=== PATIENT | female | born 1980 | race Caucasian/White ===

== ENCOUNTER 2018-07-14 19:54 | Emergency (ER) | payer BC ==
[2018-07-14] MEDS ORDERED: NORMAL SALINE 1000 ML 1,000 ML IV ONE (20:38)
[2018-07-14] MEDS ORDERED: ONDANSETRON HCL INJ/PF 4 MG/2 ML SDV IV ONE (20:38)
[2018-07-14] MEDS ORDERED: FENTANYL CITRATE INJ/PF 100 MCG/2 ML AMPUL IV ONE (20:38)
--- NOTE | 2018-07-14 20:40 | ER Document Report ---
ED Medical Screen (RME) - General Chief Complaint: Abdominal Pain Stated Complaint: ABDOMINAL PAIN Time Seen by Provider: 07/14/18 20:38 Primary Care Provider: VIN LEZAMA NP [Primary Care Provider] - Follow up as needed Notes: Patient is a 37-year-old female history of pancreatitis presents to the emergency department for generalized epigastric pain and nausea vomiting. States she has a history of pancreatitis and this "feels the same." Patient states she has a history of a cholecystectomy. GENERAL: Alert, interacts well. No acute distress. ABDOMEN: Soft, generalized epigastric abdominal pain non-distended. Bowel sounds present in all 4 quadrants. I have greeted and performed a rapid initial assessment of this patient. A comprehensive ED assessment and evaluation of the patient, analysis of test r esults and completion of the medical decision making process will be conducted by additional ED providers. This medical record was dictated with voice recognizing software. There may be grammatical, syntax errors that are unintended. TRAVEL OUTSIDE OF THE [place] IN LAST 30 DAYS: No - Related Data Allergies/Adverse Reactions: No Known Drug Allergies Allergy (Verified 01/03/15 00:49) Past Medical History Renal/ Medical History: Reports: Hx Kidney Stones Past Surgical History: Reports: Hx Cholecystectomy, Hx Tubal Ligation - Immunizations Hx Diphtheria, Pertussis, Tetanus Vaccination: - Unknown Physical Exam - Vital signs Vitals: Temp Pulse Resp BP Pulse Ox 98.4 F 71 14 132/79 H 100 07/14/18 20:13 07/14/18 20:13 07/14/18 20:13 07/14/18 20:13 07/14/18 20:13 Course - Vital Signs Vital signs: Temp Pulse Resp BP Pulse Ox 98.4 F 71 14 132/79 H 100 07/14/18 20:13 07/14/18 20:13 07/14/18 20:13 07/14/18 20:13 07/14/18 20:13 Doctor's Discharge - Discharge Referrals: VIN LEZAMA NP [Primary Care Provider] - Follow up as needed
[2018-07-14 21:42] LABS: ABSOLUTE BASOPHILS # (AUTO) 0.1 10^3/uL (0.0-0.2); ABSOLUTE EOSINOPHILS # (AUTO) 0.1 10^3/uL (0.0-0.6); ABSOLUTE LYMPHOCYTES (AUTO) 2.8 10^3/uL (0.5-4.7); ABSOLUTE MONOCYTES (AUTO) 0.4 10^3/uL (0.1-1.4); BASOPHILS % (AUTO) 0.7 % (0-2); EOSINOPHILS % (AUTO) 0.8 % (0-6); HEMOGLOBIN 12.8 g/dL (12.0-15.5); LYMPHOCYTES % (AUTO) 38.4 % (13-45); MEAN CORPUSCULAR HEMOGLOBIN 32.1 pg (27.0-33.4); MEAN CORPUSCULAR HGB CONC 33.7 g/dL (32.0-36.0); MEAN CORPUSCULAR VOLUME 95 fl (80-97); MONOCYTES % (AUTO) 5.6 % (3-13); PLATELET COUNT 234 10^3/uL (150-450); RED BLOOD COUNT 3.98 10^6/uL (3.72-5.28); RED CELL DISTRIBUTION WIDTH 12.8 % (11.5-14.0); SEGMENTED NEUTROPHILS % (AUTO) 54.5 % (42-78); TOTAL CELLS COUNTED % (AUTO) 100 %; WHITE BLOOD COUNT 7.4 10^3/uL (4.0-10.5)
[2018-07-14 21:51] LABS: AMORPHOUS SEDIMENT,URINE TRACE /HPF; APPEARANCE,URINE CLOUDY; BILIRUBIN,URINE NEGATIVE (NEGATIVE); COLOR,URINE YELLOW; GLUCOSE, URINE NEGATIVE (NEGATIVE); KETONES,URINE NEGATIVE (NEGATIVE); LEUKOCYTE ESTERASE,URINE NEGATIVE (NEGATIVE); NITRITE,URINE NEGATIVE (NEGATIVE); PROTEIN,URINE NEGATIVE (NEGATIVE); URINE SPECIFIC GRAVITY 1.016
[2018-07-14 21:58] LABS: ALANINE AMINOTRANSFERASE 22 U/L (9-52); ALKALINE PHOSPHATASE 40 U/L (38-126); ANION GAP 9 (5-19); ASPARTATE AMINO TRANSFERASE 16 U/L (14-36); BILIRUBIN,DIRECT 0.2 mg/dL (0.0-0.4); BILIRUBIN,TOTAL 0.4 mg/dL (0.2-1.3); BLOOD UREA NITROGEN 13 mg/dL (7-20); CALCIUM 9.1 mg/dL (8.4-10.2); CARBON DIOXIDE 24 mmol/L (22-30); CHLORIDE 106 mmol/L (98-107); GLUCOSE 83 mg/dL (75-110); LIPASE 1051.7 U/L (23-300); POTASSIUM 3.6 mmol/L (3.6-5.0); TOTAL PROTEIN 6.7 g/dL (6.3-8.2)
[2018-07-14] MEDS ORDERED: ONDANSETRON ODT 4 MG TAB (6 TAB/ER DISP) PO PRN (22:27)
[2018-07-14] MEDS ORDERED: HYDROCODONE/ACETAMINOPHEN 5-325 MG (6 TAB/ER DISP) PO PRN (22:27)
--- NOTE | 2018-07-14 22:29 | ER Document Report ---
ED General - General Chief Complaint: Abdominal Pain Stated Complaint: ABDOMINAL PAIN Time Seen by Provider: 07/14/18 20:38 Primary Care Provider: VIN LEZAMA NP [Primary Care Provider] - Follow up in 3-5 days Notes: Patient is a 37-year-old female with past medical history of alcohol induced pancreatitis who presents with 36 hours of epigastric abdominal pain with associated nausea and vomiting. The patient reports that her pain symptoms started last night after taking several shots of liquor. States the pain was actually much worse last evening but that she was "into much pain to come to the hospital". She states that the pain is currently much improved although is currently still a mild, cramping, aching discomfort to her epigastrium. It does radiate through to her back. She notes that she is still nauseated but has been able to tolerate oral fluids without difficulty. She denies fever or cons titutional symptoms. States this feels very similar to when she is had cases of pancreatitis in the past. Has not seen her primary care physician regarding today's concerns. TRAVEL OUTSIDE OF THE [place] IN LAST 30 DAYS: No - Related Data Allergies/Adverse Reactions: No Known Drug Allergies Allergy (Verified 07/14/18 22:31) Past Medical History - General Information source: Patient - Social History Smoking Status: Current Every Day Smoker Chew tobacco use (# tins/day): No Frequency of alcohol use: Heavy Drug Abuse: None Lives with: Family Family History: Reviewed & Not Pertinent Patient has suicidal ideation: No Patient has homicidal ideation: No Renal/ Medical History: Reports: Hx Kidney Stones. Denies: Hx Peritoneal Dialysis Past Surgical History: Reports: Hx Cholecystectomy, Hx Tubal Ligation - Immunizations Hx Diphtheria, Pertussis, Tetanus Vaccination: - Unknown Review of Systems - Review of Systems Notes: Constitutional: Negative for fever. HENT: Negative for sore throat. Eyes: Negative for visual changes. Cardiovascular: Negative for chest pain. Respiratory: Negative for shortness of breath. Gastrointestinal: Positive for upper abdominal pain, nausea and vomiting Genitourinary: Negative for dysuria. Musculoskeletal: Negative for back pain. Skin: Negative for rash. Neurological: Negative for headaches, weakness or numbness. 10 point ROS negative except as marked above and in HPI. Physical Exam - Vital signs Vitals: Temp Pulse Resp BP Pulse Ox 98.4 F 71 14 132/79 H 100 06/08/19 20:13 07/14/18 20:13 07/14/18 20:13 07/14/18 20:13 07/14/18 20:13 Interpretation: Normal Notes: PHYSICAL EXAMINATION: GENERAL: Well-appearing, well-nourished and in no acute distress. HEAD: Atraumatic, normocephalic. EYES: Pupils equal round and reactive to light, extraocular movements intact, sclera anicteric, conjunctiva are normal. ENT: nares patent, oropharynx clear without exudates. Moist mucous membranes. NECK: Normal range of motion, supple without lymphadenopathy LUNGS: Breath sounds clear to auscultation bilaterally and equal. No wheezes rales or rhonchi. HEART: Regular rate and rhythm without murmurs ABDOMEN: Soft, minimal epigastric abdominal discomfort but no other localized areas of tenderness, normoactive bowel sounds. No guarding, no rebound. No masses appreciated. EXTREMITIES: Normal range of motion, no pitting or edema. No cyanosis. NEUROLOGICAL: No focal neurological deficits. Moves all extremities spontaneously and on command. PSYCH: Normal mood, normal affect. SKIN: Warm, Dry, normal turgor, no rashes or lesions noted. Course - Re-evaluation Re-evalutation: 07/14/18 22:29 Patient presents with clinical history and exam and labs to suggest acute pancreatitis. Lipase is markedly elevated today. Patient admits to alcohol use as the trigger for the acute episode of pancreatitis and has a history of the same in the past. At time of arrival, patient's vitals are within normal limits, they are well-appearing and in no acute distress. The patient has tolerated oral intake without difficulty and has not had any vomiting with today's presentation. Pain was able to be controlled here in the emergency department with oral medications. Robins score is 0. Patient is an appropriate candidate for outpatient management of this acute episode of pancreatitis using oral pain medications, antiemetics, and recommendations for a clear liquid diet until pain has resolved. At this time will discharge with return precautions and follow-up recommendations. Verbal discharge instructions given a the bedside and opportunity for questions given. Medication warnings reviewed. Patient is in agreement with this plan and has verbalized understanding of return precautions and the need for primary care follow-up in the next 24-72 hours. - Vital Signs Vital signs: Temp Pulse Resp BP Pulse Ox 97.8 F 69 18 131/71 H 100 07/14/18 22:42 07/14/18 22:42 07/14/18 22:42 07/14/18 22:42 07/14/18 22:42 - Laboratory Result Diagrams: 07/14/18 21:29 07/14/18 21:29 Laboratory results interpreted by me: 07/14/18 07/14/18 21:06 21:29 Lipase 1051.7 H Urine Urobilinogen 2.0 H Discharge - Discharge Clinical Impression: Upper abdominal pain Acute pancreatitis Qualifiers: Pancreatitis type: alcohol induced Acute pancreatitis complication: no infection or necrosis Qualified Code(s): K85.20 - Alcohol induced acute pancreatitis without necrosis or infection Condition: Good Disposition: HOME, SELF-CARE Additional Instructions: You were seen today for alcohol-induced pancreatitis. Please avoid alcohol in any quantity in the future as this could cause a recurrence of your pancreatitis. Please keep in mind that pancreatitis can be a very serious condition that can even result in . Your case today appears very mild and it is safe for you to go home today with medications for pain and nausea. Please drink plenty of fluids over the next several days and try to avoid food ingestion until your pain is resolved. Please return to the emergency department immediately if you develop persistent vomiting that prohibits you from taking your medications or keeping fluids down, you develop a fever of greater than 101F, you have worsening pain, you become confused, you become short of breath, or have any other symptoms that are worrisome to you. Please follow-up with your primary care doctor in the next 24-48 hours. Referrals: VIN LEZAMA NP [Primary Care Provider] - Follow up in 3-5 days
[2018-07-14 22:43] VITALS: BP 131/71
== END 2018-07-14 22:54 | disposition home or self-care (01) ==
LOC: ER 19:54
DX: K85.20 Alcohol induced acute pancreatitis without necrosis or infection (principal); F17.200 Nicotine dependence, unspecified, uncomplicated; Z90.49 Acquired absence of other specified parts of digestive tract
CPT/HCPCS: 99284; 96361; 96374; 96375; 36415; 83690; 85025; 81025; 80053; 81001; J3010; J2405; J7030